=== PATIENT | female | born 1965 | race Caucasian/White ===

== ENCOUNTER 2023-01-23 09:00 | Outpatient (RCR) | payer BC, SELFPAY | END 2023-05-07 23:59 | disposition home or self-care (01) | PROVIDERS: PCP Family Medicine; Visit Provider Family Medicine | DX: S49.92XA Unspecified injury of left shoulder and upper arm, initial encounter (principal); Z51.89 Encounter for other specified aftercare | CPT/HCPCS: 97035; 97110; 97140; 97162 ==